=== PATIENT | female | born 1970 ===

== ENCOUNTER 2025-02-14 03:16 | Outpatient (CLI) | payer OTHER, SELFPAY ==
--- NOTE | 2025-02-14 | DI.RAD_ITS ---
Exam(s) XR LUMBAR SPINE AP, LAT EXAM: XR LUMBAR SPINE AP, LAT CLINICAL HISTORY: Z02.71, ENCOUNTER FOR DISABILITY, LOW BACK PAIN. TECHNIQUE: 2D digital imaging was performed. COMPARISON: No exams were available for comparison FINDINGS: 3 views No evidence of acute fracture, listhesis, nor pars defects. There is mild narrowing of the L3-4 disc space. Other disc spaces in the lumbar spine exhibit relatively preserved disc height. There is mild loss of height at superior endplate of T12 which appears chronic and there is chronic disc space narrowing at T11-T12 level. There is some degenerative changes in the facet joints at L4-5 and L5-S1 levels. There is no degenerative listhesis. There is no scoliosis. The sacroiliac joints appear age-appropriate. Bone density normal. No osseous lesions IMPRESSION: As above DATA REPOSITORY: RADIATION DOSE DELIVERED:
== END 2025-02-14 03:36 ==
LOC: DI 03:16
PROVIDERS: Visit Provider Pediatrics Pediatric Rheumatology
DX: Z02.71 Encounter for disability determination (principal); M51.360 Other intervertebral disc degeneration, lumbar region with discogenic back pain only
CPT/HCPCS: 72100